=== PATIENT | female | born 1950 | race Caucasian/White ===

== ENCOUNTER 2017-01-09 05:14 | Observation (INO) | payer OTHER ==
[~2017-01-09] VITALS: Ht 167.6 cm; Wt 103.0 kg
[2017-01-09] MEDS ORDERED: METOPROLOL TARTRATE 25 MG TAB PO PRN (06:15)
[2017-01-09] MEDS ORDERED: ceFAZolin 1,000 MG/NS 100 ML IV SCH ×2 (06:15)
[2017-01-09] MEDS: LACTATED RINGER'S 1000 ML IV SCH (06:15)
[2017-01-09] MEDS ORDERED: INSULIN HUMAN REGULAR 1,000 UNITS/10 ML VIAL SQ PRN (06:15)
[2017-01-09] MEDS: SODIUM CHLORID 0.9% 500 ML IV SCH ×2 (06:15→20:18)
[2017-01-09] MEDS ORDERED: LEVO100T5 PO (06:20)
[2017-01-09] MEDS ORDERED: ATEN25TA PO (06:20)
[2017-01-09] MEDS ORDERED: LIPI40TA PO (06:20)
[2017-01-09] MEDS ORDERED: LISI40TA PO (06:20)
[2017-01-09 06:22] VITALS: BP 153/98; PULSE 70; RESP 20; TEMP 98.6; O2SAT 97
[2017-01-09] MEDS ORDERED: HEPARIN SODIUM - SQ 10,000 UNITS/ML VIAL SQ SCH (07:00)
[2017-01-09] MEDS ORDERED: SUGAMMADEX SODIUM 200 MG/2 ML VIAL IV PUSH ONE ×2 (07:01)
[2017-01-09] MEDS ORDERED: ARTIFICIAL TEARS OPTH OINT 3.5 APPLIC/3.5 GM TUBO ONE (07:01)
[2017-01-09] MEDS ORDERED: ACETAMINOPHEN 1000 MG/100 ML VIAL IV ONE (07:01)
[2017-01-09] MEDS ORDERED: DEXAMETHASONE SOD PHOS 4 MG/ML VIAL ONE (07:16)
[2017-01-09] MEDS ORDERED: FAMOTIDINE 20 MG/2 ML VIAL ONE (07:16)
[2017-01-09] MEDS ORDERED: MIDAZOLAM HCL 2 MG/2 ML VIAL ONE (07:16)
[2017-01-09] MEDS ORDERED: ceFAZolin INJ 1,000 MG VIAL IV ONE ×2 (08:05→10:35)
[2017-01-09] MEDS ORDERED: LIDOCAINE 1%/EPINEPHrine 1:100,000 SOLN 30 ML VIAL INFIL ONE (08:10)
[2017-01-09] MEDS ORDERED: LACTATED RINGER'S 1000 ML INJ 1,000 ML IV ONE (12:00)
[2017-01-09] MEDS ORDERED: PROPOFOL 200 MG/20 ML AMP IV ONE (12:00)
[2017-01-09] MEDS ORDERED: PHENYLEPH/NS 1000 MCG/10 ML SYR IV ONE (12:00)
[2017-01-09] MEDS ORDERED: ONDANSETRON HCL 4 MG/2 ML VIAL IV PUSH ONE (12:00)
[2017-01-09] MEDS ORDERED: NORMOSOL R INJ 1,000 ML IV ONE (12:00)
[2017-01-09] MEDS ORDERED: LORazepam 0.5 MG TAB PO PRN (12:15)
[2017-01-09] MEDS ORDERED: diphenhydrAMINE HCL 25 MG CAP PO PRN (12:15)
[2017-01-09] MEDS ORDERED: oxyCODONE/ACETAMINOPHEN 5 MG/325 MG TAB PO PRN ×2 (12:15)
[2017-01-09] MEDS ORDERED: ONDANSETRON HCL 4 MG/2 ML VIAL IVP PRN (12:15)
[2017-01-09] MEDS ORDERED: SODIUM CHLORIDE 0.9% FLUSH 10 ML FLUSH IV FLUSH PRN (12:15)
[2017-01-09] MEDS ORDERED: *morphine SULFATE 8 MG/ML PERIprocedure ONLY ONE ×2 (12:23→12:36)
[2017-01-09] MEDS ORDERED: fentaNYL CITRATE 250 MCG/5 ML AMP ONE ×2 (12:25)
[2017-01-09] MEDS: D5-1/2 NS + KCL 20 MEQ INJ 1,000 ML IV SCH ×2 (13:00→22:16)
[2017-01-09] MEDS: KETOROLAC TROMETHAMINE 30 MG/ML (IVP) VIAL IVP SCH ×2 (14:55→22:14)
--- NOTE | 2017-01-09 15:32 | PD.ONC.PN ---
Subjective Subjective Remarks Post op check pt still sleepy awakens to voice states that her ritchie cath is bothering her feels like she has uti, was tx back in 06/2016 otherwise no complaints Objective Data Date Time Temp Pulse Resp B/P Pulse Ox O2 Delivery O2 Flow Rate FiO2 01/09/17 13:40 97.5 68 16 115/70 95 Nasal Cannula 2 01/09/17 13:30 65 16 114/69 94 Nasal Cannula 2 01/09/17 13:15 66 15 113/72 98 Nasal Cannula 3 01/09/17 13:00 68 15 110/69 97 Nasal Cannula 3 01/09/17 12:45 70 15 109/71 96 Nasal Cannula 3 01/09/17 12:41 15 01/09/17 12:30 73 14 112/75 98 Nasal Cannula 4 01/09/17 12:28 15 01/09/17 12:15 98.4 79 14 114/89 96 Nasal Cannula 4 01/09/17 06:22 98.6 70 20 153/98 97 01/09/17 01/09/17 01/09/17 07:00 15:00 23:00 Intake Total 2150 ml Output Total 800 ml Balance 1350 ml Laboratory Results Laboratory Tests Test 01/09/17 06:27 Blood Type AB POSITIVE Antibody Screen NEGATIVE Blood Bank Comment Administered Medications Medications (Trade) Dose Ordered Sig/Sadie Route PRN Reason Start Time Stop Time Status Last Admin Dose Admin Lactated Ringer's 1,000 ml @ 30 mls/hr Q24H IV 01/09/17 06:15 01/09/17 06:15 Potassium Chloride/Dextrose/ Sod Cl (D5-1/2 NS + KCl 20 Meq Inj) 1,000 ml @ 100 mls/hr Q10H IV 01/09/17 12:04 01/09/17 13:00 Ketorolac Tromethamine (Toradol Inj) 15 mg Q6H IVP 01/09/17 14:00 01/10/17 08:01 01/09/17 14:55 Objective Remarks GENERAL: Well-nourished, well-developed patient. SKIN: Warm and dry. HEAD: Normocephalic. EYES: No scleral icterus. No injection or drainage. , facial swelling CARDIOVASCULAR: Regular rate and rhythm without murmurs. RESPIRATORY: Breath sounds equal bilaterally. No accessory muscle use. GASTROINTESTINAL: SS are C/D/I EXTREMITIES: TEDs MUSCULOSKELETAL: Adequate muscle tone. NEUROLOGICAL: No obvious focal deficit. sleepy PSYCHIATRIC: sleepy Assessment/Plan Problem List: (1) Post-operative state Status: Acute Plan: s/p RA lap hyst with BSO and lymph node bx post op orders in chart ritchie d/cd on POD#1 pain meds per EMR ADAT encourage DB, IS to bedside will check urine culture start phenazopyridine for bladder discomfort anticipate D/C home tomorrow (2) Endometrial cancer Status: Acute Sathish [place] Jan 09, 2017 15:32
[2017-01-09 16:00] VITALS: BP 136/73; PULSE 65; RESP 14; TEMP 96.9; O2SAT 95
[2017-01-09] MEDS: PHENAZOPYRIDINE HCL 100 MG TAB PO PRN (17:59)
[2017-01-09] MEDS ORDERED: ATORVASTATIN 40 MG TAB PO SCH (21:00)
[2017-01-09] MEDS: SODIUM CHLORIDE 0.9% FLUSH 10 ML FLUSH IV FLUSH SCH (21:00)
[2017-01-09 22:00] VITALS: BP 139/80; PULSE 64; RESP 16; TEMP 96.8; O2SAT 98
[2017-01-10 01:05] VITALS: O2SAT 97
[2017-01-10 01:15] VITALS: BP 131/69; PULSE 65; RESP 16; TEMP 96.9; O2SAT 97
[2017-01-10] MEDS: KETOROLAC TROMETHAMINE 30 MG/ML (IVP) VIAL IVP SCH ×2 (03:41→07:53)
[2017-01-10 04:00] VITALS: BP 120/72; PULSE 67; RESP 16; TEMP 97.1; O2SAT 96
[2017-01-10] MEDS: LACTATED RINGER'S 1000 ML IV SCH (05:09)
[2017-01-10] MEDS: PHENAZOPYRIDINE HCL 100 MG TAB PO PRN (05:24)
[2017-01-10] MEDS ORDERED: LEVOTHYROXINE SODIUM 100 MCG TAB PO SCH (06:00)
[2017-01-10] MEDS ORDERED: OXYC1TAB63 PO (06:50)
[2017-01-10 06:53] LABS: AUTOMATED NEUTROPHIL # 10.7 TH/MM3 (1.8-7.7); BASOPHIL % 0.3 % (0.0-2.0); EOSINOPHIL % 0.1 % (0.0-4.0); HEMATOCRIT 37.5 % (35.0-46.0); HEMO FLAGS DIFF FINAL; LYMPH % 12.2 % (9.0-44.0); LYMPHOCYTE # 1.7 TH/MM3 (1.0-4.8); MEAN CELL VOLUME 97.7 FL (80.0-100.0); MEAN CORPUSCULAR HEMOGLOBIN 33.2 PG (27.0-34.0); MEAN CORPUSCULAR HGB CONC 33.9 % (32.0-36.0); MONO % 8.6 % (0.0-8.0); NEUT % 78.8 % (16.0-70.0); PLATELET COUNT 189 TH/MM3 (150-450); RED BLOOD COUNT 3.84 MIL/MM3 (4.00-5.30); RED CELL DISTRIBUTION WIDTH 13.3 % (11.6-17.2); WHITE BLOOD COUNT 13.6 TH/MM3 (4.0-11.0)
[2017-01-10 07:14] LABS: BICARBONATE 26.5 MEQ/L (21.0-32.0); POTASSIUM 3.9 MEQ/L (3.5-5.1)
[2017-01-10] MEDS: SODIUM CHLORIDE 0.9% FLUSH 10 ML FLUSH IV FLUSH SCH (07:54)
[2017-01-10 08:00] VITALS: BP 134/77; PULSE 69; RESP 18; TEMP 97.1; O2SAT 96
[2017-01-10] MEDS: D5-1/2 NS + KCL 20 MEQ INJ 1,000 ML IV SCH (08:04)
[2017-01-10 08:33] VITALS: O2SAT 96
[2017-01-10] MEDS ORDERED: LISINOPRIL 20 MG TAB PO SCH (09:00)
[2017-01-10] MEDS ORDERED: ATENOLOL 25 MG TAB PO SCH (09:00)
--- NOTE | 2017-01-11 11:03 | MP ---
cc: BRENNEN PIRES M.D., KELLY L. MD HERDEL, G. FREDERICK M.D. DATE OF SURGERY: 01/09/2017 PREOPERATIVE DIAGNOSIS 1. Grade 2 endometrial adenocarcinoma. 2. Enlarged uterus. POSTOPERATIVE DIAGNOSIS 1. Grade 2 endometrial adenocarcinoma. 2. Uterine leiomyomas. PROCEDURE Robotic-assisted laparoscopic hysterectomy, bilateral salpingo-oophorectomy, bilateral pelvic lymphadenectomy (and myomectomies to help facilitate transvaginal delivery of specimen). SURGEON Mena Michaels [employer] Instrument Technician ANESTHESIA General endotracheal. ESTIMATED BLOOD LOSS 200 cc. IV FLUIDS 2000 cc. URINE OUTPUT 450 cc. HISTORY A 66-year-old female who had bleeding dating back at least until June of last year by her report, eventually sought evaluation. Biopsy was obtained that showed a grade 2 endometrial adenocarcinoma. She was counseled regarding these findings with the consideration of surgery. She was seen again in the pre-op holding area where the findings and potential plan were again discussed. She expressed good understanding and agreed to move forward. FINDINGS The uterine cavity sounded to 9 cm. The uterus was prominent. There were two leiomyomas off the right fundus and right posterolateral wall of the uterus. Each of the leiomyomas were approximately 4-5 cm in diameter. Tubes and ovaries grossly appeared normal. There were some borderline prominent lymph nodes in the external iliac region bilaterally without overt fixed or pathologic lymph nodes. There were no prominent lymph nodes detected in the paraaortic region. In the peritoneal cavity the liver and diaphragm edges were smooth. Omentum, large and small bowel and adjacent mesentery appeared normal without peritoneal implants. The uterus once removed showed the tumor to be 3 cm in diameter. It had greater than 50% depth of invasion into the myometrium (uterine wall was 19 mm thick with a least 13 mm depth of invasion). There was no overt endocervical extension and we know from preoperative biopsy that it is a grade 2 tumor. STATEMENT OF COMPLEXITY The complexity of the case was increased due to the enlarged uterine size requiring myomectomy x2 to help facilitate transvaginal delivery of the specimen and with the enlarged uterus. Modifier should be applied accordingly. DETAILS OF PROCEDURE The patient was taken to the operating room and placed in the dorsal lithotomy position after general endotracheal anesthesia was administered. A timeout was undertaken. The patient was identified by sight recognition and hospital ID bracelet and the proposed procedure was reviewed and confirmed. She was carefully positioned in padded Demian stirrups. Her arms were padded and secured to the sides. She was further secured to the operating table with eggcrate padding and tape in a cross chest over the shoulder fashion. All sites were noted to be properly aligned with no malalignments or pressure points. She was prepped in sterile fashion, draped below the waist, placed in high lithotomy position. The cervix was grasped, uterine cavity sounded. A large VCare manipulator was inserted and secured in the usual fashion. A Chung catheter was placed in the bladder. She was returned to low lithotomy position. Change of sterile gloves was undertaken. We completed draping in anticipation of laparoscopy, confirmed that an orogastric airway was in the stomach on suction. With direct laparoscopic visualization and manual elevation of the abdominal wall, a 5 mm cannula was introduced into the left upper quadrant. Carbon dioxide gas was insufflated and atraumatic entry was confirmed. A 12 mm cannula was placed in the midline above the umbilicus. An 8 mm cannula was placed in the right upper abdomen and left lateral abdomen, and the original 5 mm was changed for an 8 mm cannula. She was placed in steep Trendelenburg position. Peritoneal washings were obtained for cytology. The anatomy was surveyed with findings as described above. The small bowel was folded back on its mesenteric root and three Ray-Radha sponges were placed around the root of the small bowel mesentery. The robotic system was brought into the operative field and attached in the usual fashion. Monopolar scissors, fenestrated bipolar forceps and ProGrasp manipulators were placed in arms #1, 2 and 3 respectively, and I took my place at the surgeon's console. The right round ligament was isolated, cauterized and transected. The anterior and posterior leafs of the broad ligament were opened. The right ureter was identified. The right infundibulopelvic ligament was isolated. The intervening peritoneum was opened. The infundibulopelvic ligament was isolated to the level of the pelvic brim which was cauterized and transected. The posterior peritoneum was opened along the right side of the uterus and cervix and the right vesicouterine peritoneum was dissected off the lower uterine segment and cervix. Uterine vessels were skeletonized and cauterized. Attention was directed toward the left side where the left round ligament was isolated, cauterized and transected. The anterior and posterior leafs of the broad ligament were opened. The left ureter was identified. The left infundibulopelvic ligament was isolated to the level of the pelvic brim. The intervening peritoneum was opened. The infundibulopelvic ligament was cauterized and transected. The posterior peritoneum was opened along the left side of the uterus and cervix and the left vesicouterine peritoneum was dissected off the lower uterine segment and cervix completing establishment of the bladder flap. The left uterine vessels were skeletonized, cauterized and transected as were the cardinal, paracervical and uterosacral ligaments. Attention was redirected to the right side where the right uterine vessels were transected. The cardinal, paracervical and uterosacral ligaments were isolated, cauterized and transected. Instrument 3 was exchanged for a tenaculum. Each of the two leiomyomas were removed as they were on the external surface of the uterus and did not communicate with the endometrial cavity. So the overlying uterine serosa was opened. The leiomyoma was grasped with a tenaculum and it was shelled out with blunt and sharp dissection, first the posterolateral leiomyoma and next the right fundal leiomyoma, and both were placed in the cul-de-sac for later retrieval. There was no entry into the endometrial cavity. Now colpotomy was performed, a 360 degree incision the cervix from the upper vagina. The specimen was withdrawn transvaginally which included uterus, cervix, tubes and ovaries. A pneumo-occluder balloon was placed in the vagina to maintain pneumoperitoneum. An EndoCatch bag was introduced transvaginally to capture the leiomyomas which were delivered transvaginally. Instruments 1 and 3 were exchanged for needle drivers as 0 Vicryl suture was introduced. Vaginal cuff was closed starting at the left corner, full-thickness closure. Posterior peritoneum and the edge of the uterosacral ligaments tied via instrument tie. Countertraction was held as a full-thickness running continuous closure was carried across the vaginal apex to the contralateral corner where it was similarly fixed and secured tight and the needle was cut and removed. The pelvis was thoroughly irrigated. Small bleeders were rendered hemostatic with bipolar cautery. There was a good margin between the vaginal cuff suture line and the bladder edge, good peristalsis of ureters, and we were awaiting preliminary pathology results. Pathology came back showing a combination of risk factors including a grade 2 tumor, tumor larger than 3 cm and depth of invasion greater than 50%. So as our preoperative discussion we agreed on a recommendation of at least obtaining the harris pelvic lymph nodes which are the tissue at greatest risk for the possibility of microscopic metastatic disease and attention was directed towards lymph node dissection. The right paravesical obturator and pararectal spaces were opened. Lymphatic tissue was removed starting at the bifurcation of the iliacs, removing lymph nodes with bipolar cautery and sharp dissection, isolating the genitofemoral nerve and continuing distally to the circumflex iliac vein. The medial border of the dissection was the superior vesical artery and the base of the dissection was the obturator nerve. There were a number of small and medium size crossing vessels within this lymphatic space requiring additional isolation and cautery with some bleeding which ensued but was able to be isolated and sealed with cautery, and this en bloc specimen was placed in the right pelvis for later retrieval. Attention was directed toward the left side where similarly the anatomical spaces were opened and lymphatics were removed using bipolar cautery and sharp dissection. The genitofemoral nerve was isolated and spared. Dissection was carried from the bifurcation of the iliacs distally to the circumflex iliac vein. The medial border was the superior vesical artery and the dissection was carried down to the obturator nerve and lymphatic tissue ventral to the obturator nerve was removed. Small vessels were isolated, cauterized and transected in a stepwise fashion. Any additional bleeding was secured with bipolar cautery and the en bloc specimen was placed in the left pelvis for later retrieval. Inspection showed no overtly enlarged paraaortic lymph nodes. Exposure to the paraaortic region was somewhat difficult due to short mesentery and redundant bowel. It was felt that further dissection in the paraaortic and paracaval region may result in morbidity that exceeded benefit, so it was felt that all reasonable surgical objectives had been completed in this individual. The robotic instruments were removed. The robotic system was disengaged from the operative field. I reentered the bedside under sterile condition. Through the 12 mm cannula a 12 cm EndoCatch bag was introduced to capture first the left pelvic lymph nodes and then another EndoCatch bag to capture the right pelvic lymph nodes which were brought out the 12 mm cannula. Next, each of the three Ray-Radha sponges that had been placed in the peritoneal cavity were grasped and removed through the 12 mm cannula. Each were inspected and noted to be removed in their entirety. Evaluation confirmed there were no remaining foreign objects in the peritoneal cavity other than what was now intentionally placed. Surgicel hemostatic agent was placed at the apex of each pelvic lymph node dissection and [place] hemostatic powder across the vaginal cuff, bladder flap and pelvic sidewalls. The 12 mm fascial defect was closed with interrupted 0 Vicryl sutures using a needle pass apparatus under direct laparoscopic visualization and tied securely which rendered the fascia completely airtight and hemostatic. The remaining cannulas were withdrawn. Carbon dioxide gas was removed from the peritoneal cavity. 3-0 Vicryl subcutaneous, 3-0 Vicryl subcuticular and Steri-Strips were used to close these incisions. The patient was returned to dorsal lithotomy position. Pelvic exam confirmed the vaginal cuff was well-supported and hemostatic. There were no vaginal lacerations, no remaining foreign objects in the vagina, and final counts were correct. She was returned to dorsal supine position and was pending reversal of anesthesia when I left the operating room to precede her to the post-anesthesia care unit. MD CARMELA Quezada/NADJA /12:36 PM /10:31 AM
--- NOTE | 2017-01-18 07:44 | MD ---
cc: BRENNEN PIRES M.D., GEORGE MOLPUS,GABRIEL Ragsdale MD ADMISSION DATE: 01/09/2017 DISCHARGE DATE: 01/10/2017 PROCEDURE 01/09/2017. Robotic-assisted laparoscopic hysterectomy, bilateral salpingo-oophorectomy, bilateral pelvic lymphadenectomy. DIAGNOSIS Endometrial cancer. HOSPITAL COURSE She did well during the first 24 hours postoperatively, tolerating oral intake. Catheter has been removed pending voiding. Hemodynamically stable. Adequate pain control. In's and out's 2510/1250. Labs are pending at the time of this dictation. PHYSICAL EXAMINATION VITAL SIGNS: Afebrile, pulse 64-67, respirations 14-16, blood pressure 120-139/69-80, O2 saturations greater than or equal to 96% while awake. GENERAL: Alert and oriented x 3. LUNGS: Clear except for mild basilar rales. CARDIOVASCULAR: Regular rate and rhythm. ABDOMEN: Soft. Incisions clean and dry. ADDICTIONS THERAPIST: No bleeding. EXTREMITIES: Nontender. ASSESSMENT Postoperative day #1 doing well. FINDINGS Preliminary pathology steps taken at surgery were reviewed. Activities and restrictions discussed. Questions were answered. She expressed good understanding. PLAN I anticipate she will meet criteria for discharge to home, therefore anticipate discharge to home. Our office number is made available. She is to contact our office to schedule followup in 2 weeks. She is to resume her prior medications and a prescription is provided for Percocet and she is to contact our office between now and the time of scheduled followup should she have any questions or problems. MD CARMELA Quezada/JOHN /6:55 AM /7:31 AM
== END 2017-01-10 11:32 | disposition home or self-care (01) ==
LOC: HSDC 05:14 → HSDI 12:06 → HOCB 13:53
PROVIDERS: ADMIT Obstetrics & Gynecology Gynecologic Oncology; ATTEND Obstetrics & Gynecology Gynecologic Oncology
DX: C54.1 Malignant neoplasm of endometrium (principal); D25.9 Leiomyoma of uterus, unspecified; N72 Inflammatory disease of cervix uteri; N85.00 Endometrial hyperplasia, unspecified; N80.0 Endometriosis of uterus; Z91.018 Allergy to other foods
CPT/HCPCS: 00840; 38571; 58571; 80048; 85025; 86850; 86900; 86901; 87086; 88112; 88307; 88309; 88331; 94150; G0378; J0131; J0690; J1100; J1644; J1885; J2250; J2270; J2370; J2405; J3010; J3480; J7120